=== PATIENT | female | born 1990 | race Caucasian/White ===

== ENCOUNTER → 2019-09-20 | Outpatient (REF) | payer OTHER | LOC: M LAB REF 16:47 | PROVIDERS: ATTEND Advanced Practice Midwife | DX: N39.0 Urinary tract infection, site not specified (principal); Z12.4 Encounter for screening for malignant neoplasm of cervix | CPT/HCPCS: 87088; 87186; 87624; G0123 ==

== ENCOUNTER 2020-06-27 08:59 | Emergency (ER) | payer BC, OTHER ==
[2020-06-27] MEDS ORDERED: ONDANSETRON 4MG/2ML VIAL ONE (09:38)
[2020-06-27] MEDS ORDERED: METOCLOPRAMIDE INJ 10MG/2ML VIAL (J2765 PER 1) ONE (12:14)
[2020-08-11 11:14] LABS: BASO # 0.1 10^3/uL (0.0-0.2); BASO % 0.7 % (0.0-1.0); EOS # 0.1 10^3/uL (0.0-0.5); EOS % 1.1 % (0.0-3.0); HEMATOCRIT 39.7 % (36.0-47.0); HEMOGLOBIN 13.5 g/dl (12.0-15.5); LYMPH # 1.7 10^3/uL (1.5-5.0); LYMPH % 21.3 % (24.0-44.0); MEAN CORPUSCULAR HEMOGLOBIN 29.6 pg (27.0-33.0); MEAN CORPUSCULAR VOLUME 87.1 fl (80.0-96.0); MONO # 0.3 10^3/uL (0.0-0.8); NEUTROPHILS # 5.9 10^3/uL (1.5-8.5); NEUTROPHILS % 72.7 % (36.0-66.0); PLATELET COUNT, AUTOMATED 176 10^3/uL (150-450); RED BLOOD COUNT 4.56 10^6/uL (4.00-5.40); WHITE BLOOD COUNT 8.2 10^3/uL (4.0-10.0)
== END 2020-06-27 14:14 | disposition home or self-care (01) ==
LOC: M ED 08:59
DX: O21.0 Mild hyperemesis gravidarum (principal); Z79.899 Other long term (current) drug therapy; Z3A.01 Less than 8 weeks gestation of pregnancy
CPT/HCPCS: 76801; 80048; 84702; 85025; 86850; 86900; 86901; 93976; 96374; 96375; 99284; J2405; J2765

== ENCOUNTER 2020-07-05 07:46 | Emergency (ER) | payer BC, OTHER ==
[~2020-07-05] VITALS: Ht 170.2 cm; Wt 60.1 kg
[2020-07-05] MEDS ORDERED: FOLI1TAB11 PO (07:52)
[2020-07-05] MEDS ORDERED: PREN200C PO (07:52)
[2020-07-05] MEDS ORDERED: METOCLOPRAMIDE INJ 10MG/2ML VIAL (J2765 PER 1) IV ONE (08:15)
[2020-07-05] MEDS ORDERED: NS 1,000 ML IV ONE (08:15)
[2020-07-05 08:36] LABS: BASO % 0.5 % (0.0-1.0); EOS # 0.1 10^3/uL (0.0-0.5); EOS % 1.1 % (0.0-3.0); HEMATOCRIT 36.8 % (36.0-47.0); HEMOGLOBIN 12.7 g/dl (12.0-15.5); LYMPH # 1.5 10^3/uL (1.5-5.0); LYMPH % 18.5 % (24.0-44.0); MEAN CORPUSCULAR HGB CONC 34.5 g/dl (32.0-36.5); MEAN CORPUSCULAR VOLUME 86.8 fl (80.0-96.0); MONO # 0.3 10^3/uL (0.0-0.8); MONO % 3.9 % (0.0-5.0); NEUTROPHILS % 75.6 % (36.0-66.0); PLATELET COUNT, AUTOMATED 166 10^3/uL (150-450); RED BLOOD COUNT 4.24 10^6/uL (4.00-5.40); WHITE BLOOD COUNT 7.9 10^3/uL (4.0-10.0)
[2020-07-05 09:08] LABS: ALBUMIN 4.1 GM/DL (3.2-5.2); BILIRUBIN,DIRECT 0.2 MG/DL (0.0-0.2); BILIRUBIN,TOTAL 0.6 MG/DL (0.2-1.0); TOTAL PROTEIN 6.9 GM/DL (6.4-8.2)
[2020-07-05 10:34] VITALS: BP 105/54
== END 2020-07-05 10:40 | disposition home or self-care (01) ==
LOC: M ED 07:46
DX: O21.9 Vomiting of pregnancy, unspecified (principal); Z87.59 Personal history of other complications of pregnancy, childbirth and the puerperium; Z79.899 Other long term (current) drug therapy
CPT/HCPCS: 36415; 80047; 80076; 83690; 84702; 85025; 96361; 96374; 99284; J2765

== ENCOUNTER → 2020-08-01 | Outpatient (CLI) | payer BC, OTHER ==
[~2020-08-01] MED LIST: FOLI1TAB11 PO; PREN200C PO
[2020-08-01 12:40] LABS: BASO % 0.6 % (0.0-1.0); EOS # 0.2 10^3/uL (0.0-0.5); EOS % 3.1 % (0.0-3.0); HEMOGLOBIN 11.8 g/dl (12.0-15.5); LYMPH # 1.6 10^3/uL (1.5-5.0); LYMPH % 22.6 % (24.0-44.0); MEAN CORPUSCULAR HEMOGLOBIN 29.9 pg (27.0-33.0); MEAN CORPUSCULAR HGB CONC 33.7 g/dl (32.0-36.5); MEAN CORPUSCULAR VOLUME 88.8 fl (80.0-96.0); MONO # 0.3 10^3/uL (0.0-0.8); MONO % 4.6 % (0.0-5.0); NEUTROPHILS # 4.8 10^3/uL (1.5-8.5); NEUTROPHILS % 68.7 % (36.0-66.0); PLATELET COUNT, AUTOMATED 169 10^3/uL (150-450); RED BLOOD COUNT 3.94 10^6/uL (4.00-5.40)
[2020-08-01 14:27] LABS: FREE T4 0.95 NG/DL (0.76-1.46); HEPATITIS C VIRUS ABY INDEX 0.1 INDEX (<0.8); HIV 1&2 SCREEN CENTAUR NEGATIVE (NEGATIVE)
[2020-08-06 13:13] LABS: CHLAMYDIA DNA AMPLIFICATION NEGATIVE (NEGATIVE); GC DNA AMPLIFICATION NEGATIVE (NEGATIVE)
== END ==
LOC: M PLALAB 08:44
PROVIDERS: ATTEND Advanced Practice Midwife
DX: Z34.81 Encounter for supervision of other normal pregnancy, first trimester (principal); Z3A.00 Weeks of gestation of pregnancy not specified

== ENCOUNTER → 2020-09-25 | Outpatient (CLI) | payer BC ==
--- NOTE | 2020-09-26 05:13 | REP ---
INDICATION: ANATOMY COMPARISON: 06/14/2020 TECHNIQUE: Transabdominal obstetrical ultrasound with color Doppler evaluation. FINDINGS: Examination demonstrates a single live intrauterine in breech presentation. motion is identified by technologist. Placenta is noted posterior and grade 0 without evidence for placenta previa or abruption. Amniotic fluid volume is normal. Cervix measures 3.2 cm in length and appears closed.. Gestational age by LMP 19 weeks 5 days with BRISA 02/14/2021. Gestational age by current measurements 19 weeks 5 days with BRISA 02/14/2021. FHR equals 143 beats per minute. BPD: 4.6 cm 19 weeks 6 days HC: 17.0 cm 19 weeks 4 days AC: 14.3 cm 19 weeks 5 days FL: 3.1 cm 19 weeks 5 days HL: 3.0 cm 19 weeks 5 days HC/AC: 1.19 Estimated weight 305 grams (43rdpercentile). Anatomical assessment demonstrates normal structures including cranium, choroid plexus, cavum, cerebellum/posterior fossa, facial features, lungs, diaphragm, stomach, cord insertion/three-vessel cord, kidneys/bladder, spine, and extremities. IMPRESSION: Single live intrauterine in breech presentation demonstrating appropriate interval growth. Limited evaluation of the heart/ventricular outflow tracts noted. Remainder of the anatomical assessment is complete and normal. <Electronically signed by Rajesh Coy > 09/26/20 [id number]
== END ==
LOC: M WHC 12:39
PROVIDERS: ATTEND Advanced Practice Midwife
DX: O32.1XX0 Maternal care for breech presentation, not applicable or unspecified (principal); Z3A.19 19 weeks gestation of pregnancy

== ENCOUNTER → 2020-10-31 | Outpatient (CLI) | payer BC ==
--- NOTE | 2020-10-31 12:32 | REP ---
INDICATION: F/U ANATOMY. COMPARISON: September 25, 2020.. TECHNIQUE: Transabdominal sonography is carried out. FINDINGS: Scanning through the gravid uterus demonstrates a viable single intrauterine gestation in breech lie. motion is observed and heart rate is recorded at 142 beats per minute. A posterior placenta is seen, grade 0, without evidence of placenta previa. Amniotic fluid is subjectively normal. Closed cervical length is measured at 3.5 cm transabdominally. No extrauterine abnormality is observed. Amniotic fluid is subjectively normal. Four-chamber heart and left ventricular outflow tract views were obtained today and are unremarkable. In conjunction with the prior study, anatomic survey is felt to be complete.. Biometry chart: BPD 6.2 cm, 25 weeks 2 days Head circumference 23.0 cm, 25 weeks 0 days Abdominal circumference 20.4 cm, 25 weeks 0 days Femur length 4.5 cm, 24 weeks 6 days Humeral length 4.1 cm, 24 weeks 6 days HC AC ratio normal 1.13 Cephalic index normal 0.76 Estimated weight 754 g, 1 lb 10 oz, 46 percentile for 24 weeks 6 days IMPRESSION: Viable single intrauterine gestation at 25 weeks 0 days by today's composite sonographic criteria. BRISA by today's sonography February 13, 2021. No complication identified. Expected gestational age estimate based on prior sonography is 24 weeks 6 days. BRISA by prior sonography February 14, 2021. <Electronically signed by Sonido Vences > 10/31/20 [id number]
== END ==
LOC: M WHC 09:24
PROVIDERS: ATTEND Obstetrics & Gynecology
DX: Z34.82 Encounter for supervision of other normal pregnancy, second trimester (principal)

== ENCOUNTER → 2020-11-03 | Outpatient (REF) | payer BC ==
[2020-11-03 15:07] LABS: HEMATOCRIT 30.8 % (36.0-47.0); HEMOGLOBIN 10.1 g/dl (12.0-15.5); MEAN CORPUSCULAR HEMOGLOBIN 30.4 pg (27.0-33.0); MEAN CORPUSCULAR HGB CONC 32.8 g/dl (32.0-36.5); MEAN CORPUSCULAR VOLUME 92.8 fl (80.0-96.0); PLATELET COUNT, AUTOMATED 151 10^3/uL (150-450); RED BLOOD COUNT 3.32 10^6/uL (4.00-5.40); WHITE BLOOD COUNT 9.7 10^3/uL (4.0-10.0)
== END ==
LOC: M PLALAB 13:08
PROVIDERS: ATTEND Obstetrics & Gynecology
DX: Z36.89 Encounter for other specified antenatal screening (principal); Z3A.00 Weeks of gestation of pregnancy not specified

== ENCOUNTER → 2021-01-13 | Outpatient (REF) | payer OTHER | LOC: M PLALAB 22:37 | PROVIDERS: ATTEND Obstetrics & Gynecology | DX: Z3A.35 35 weeks gestation of pregnancy (principal) ==

== ENCOUNTER → 2021-01-15 | Outpatient (REF) | payer OTHER | LOC: M SFHCWAGY 12:58 | PROVIDERS: ATTEND Obstetrics & Gynecology | DX: Z3A.35 35 weeks gestation of pregnancy (principal) ==

== ENCOUNTER → 2021-02-14 | Outpatient (CLI) | payer OTHER | LOC: M LABSMTC 08:24 | PROVIDERS: ATTEND Specialist | DX: Z20.822 Contact with and (suspected) exposure to COVID-19 (principal) ==

== ENCOUNTER → 2021-02-17 | Outpatient (CLI) | payer BC ==
--- NOTE | 2021-02-17 13:58 | REP ---
INDICATION: UTERINE SIZE DATE DISCREPANCY,GROWTH. COMPARISON: 10/31/2020. TECHNIQUE: Multiple sonographic images of the gravid uterus. FINDINGS: There is a single intrauterine gestation in a cephalic presentation. The placenta is posterior. There is no placenta previa. Cervix measures 3.4 cm. heart rate is 140 beats per minute. Amniotic fluid index is 24.4. Normal is 7.1-20.6. Subjectively there is polyhydramnios. The composite ultrasound gestational age by today's measurements is 40 weeks 4 days with an BRISA of 02/13/2021. Gestational age by the 1st ultrasound is 40 weeks 3 days with an BRISA of 02/14/2021. Gestational age by LMP is 40 weeks 3 days with an BRISA of 02/14/2021. weight is 4264 g that corresponds to 9 lb 6 oz. IMPRESSION: Polyhydramnios. Gestational age 40 weeks 4 days. <Electronically signed by Chirag Barraza > 02/17/21 [id number]
== END ==
LOC: M WHC 11:33
PROVIDERS: ATTEND Advanced Practice Midwife
DX: O26.843 Uterine size-date discrepancy, third trimester (principal); O40.3XX0 Polyhydramnios, third trimester, not applicable or unspecified; Z3A.40 40 weeks gestation of pregnancy

== ENCOUNTER 2021-02-19 14:38 | Inpatient (IN) | payer BC, OTHER ==
[2021-02-19] VITALS (8 sets, daily range): BP systolic 111–139; BP diastolic 71–81
[~2021-02-19] VITALS: Ht 170.2 cm; Wt 96.8 kg
[2021-02-19] MEDS ORDERED: LACTATED RINGER'S 1000 ML IV STA (15:47)
[2021-02-19] MEDS ORDERED: OXYTOCIN INJ 10 UNITS/ML VIAL (J2590) IV PRN (15:50)
[2021-02-19] MEDS ORDERED: METHYLERGONOVINE MALEATE 0.2 MG/ML VIAL (J2210) IM PRN (15:50)
[2021-02-19] MEDS ORDERED: CARBOPROST TROMETHAMINE 250 MCG/ML AMP IM PRN (15:50)
[2021-02-19] MEDS ORDERED: LIDOCAINE 1% MDV 20ML VIAL INFIL PRN (15:50)
[2021-02-19] MEDS ORDERED: TRANEXAMIC ACID INJection 1,000 MG in NS 100 ML IV PRN (15:50)
[2021-02-19] MEDS ORDERED: OXYTOCIN INJ 10 UNITS/ML VIAL (J2590) IM PRN (15:50)
[2021-02-19] MEDS ORDERED: OXYTOCIN DRIP 30 UNITS in IV 1 EA IV PRN ×6 (15:50)
[2021-02-19] MEDS ORDERED: LR 1,000 ML IV SCH (15:50)
[2021-02-19 16:17] LABS: HEMATOCRIT 32.3 % (36.0-47.0); HEMOGLOBIN 10.6 g/dl (12.0-15.5); MEAN CORPUSCULAR HEMOGLOBIN 28.6 pg (27.0-33.0); MEAN CORPUSCULAR HGB CONC 32.8 g/dl (32.0-36.5); MEAN CORPUSCULAR VOLUME 87.1 fl (80.0-96.0); PLATELET COUNT, AUTOMATED 135 10^3/uL (150-450); RED BLOOD COUNT 3.71 10^6/uL (4.00-5.40); WHITE BLOOD COUNT 11.4 10^3/uL (4.0-10.0)
--- NOTE | 2021-02-19 16:34 | HPEPDOC ---
Obstetrical History & Physical General Date of Admission Feb 19, 2021 at 14:38 History of Present Illness 30-year-old at 40+5 weeks gestation. Presents for an induction of labor. Indication for induction: polyhydramnios, suspected macrosomia She denies vaginal bleeding, loss of fluid or painful, frequent uterine contractions. She reports regular movement. She denies headache, visual changes, right upper quadrant pain, shortness of breath or chest pain. 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: No STI or dysplasia OB: G1, 2018 uncomplicated, 9lbs 3oz Sochx: No tobacco, alcohol or drug use FamHx: uterine cancer, colon cancer, HTN labs: Blood type O+ , antibody screen negative, HepBsAg neg, HIV neg, rubella immune, Hep C antibody negative, RPR nonreactive, CT/GC neg, urine culture negative, 1 hour glucose challenge test 84, GBS negative Past Medical History Allergies Coded Allergies: spinach (Verified Allergy, Intermediate, tongue swelling; itching, 02/19/21) Medications Scheduled Docosahexanoic Acid ( Dha) 200 Mg Capsule, 1 CAP PO DAILY Folic Acid (Folic Acid) 1 Mg Tablet, 1 TAB PO DAILY Physical Examination Physical Examination GENERAL: Alert and oriented times three. ABDOMEN: Gravid and non-tender to touch. FETUS: Is vertex (VTX) by sterile vaginal examination (SVE), fetus is vertex (VTX) by Dario. HEART RATE: Regular rate and rhythm. LUNGS: Clear to auscultation (CTA). EXTREMITIES: No edema. No clonus. SVE: 2cm/50%/-3 EFM: Category I Perla: irregular contractions. Laboratory Data 24H LABS Laboratory Tests 2 02/19/21 14:58: Serology Scanned Report Hepatitis B Testing Assessment/Plan Assessment 30yo at 40+5 weeks. Polyhydramnios. Suspected macrosomia/LGA. Favorable cervix for IOL. Reassuring maternal and status. Plan Admit and orient. 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 Labs and intravenous (IV) per unit protocol. Counseled on cervical ripening with misoprostol and Pitocin and induction of labor (IOL). Mode of delivery plan: ; reviewed ACOG guidelines regarding macrosomia. Patient expressed desire for . No contraindications to this plan. No history of dystocia / or maternal injury with previous . Proven pelvis to 9 lbs 3oz. Recent US EFW essentially equivalent. Pt verbalized understanding and agreement with all of the above. MARIELA MAIN DO Feb 19, 2021 16:34
[2021-02-19] MEDS ORDERED: miSOPROStol 50MCG 1/2 TABLET SL SCH (16:50)
--- NOTE | 2021-02-19 23:36 | IPNPDOC ---
Obstetrical Progress Note Date of Service Feb 19, 2021 Subjective Patient feeling contractions frequently and painfully. No LOF/VB. +FM. Objective Vital Signs Date Time Temp Pulse Resp B/P (MAP) Pulse Ox O2 Delivery O2 Flow Rate FiO2 02/19/21 22:15 95 16 127/78 (94) 02/19/21 19:41 97.5 Room Air Assessment Heart Rate Tracing: Category I Tocometer Contractions: Yes Frequency: every 2-5 min. Sterile Vaginal Examination Dilation: 6 cm Effacement (%): 70% Station: -1 Cervical Consistency: Soft Cervical Position: Anterior Postion/Presentation: Cephalic presentation Assessment and Plan Status: Reassuring Anticipate: Vaginal Delivery Additional Comments Active labor. Reassuring maternal and status. MARIELA MAIN DO Feb 19, 2021 23:36
[2021-02-20] VITALS (14 sets, daily range): BP systolic 104–159; BP diastolic 57–96
[2021-02-20] MEDS ORDERED: OXYTOCIN 30 UNITS IN 0.9% NaCl 500ML IV BAG (J2590) As Ordered ONE (00:51)
[2021-02-20] MEDS ORDERED: OXYTOCIN DRIP 30 UNITS in IV 1 EA IV SCH (03:35)
[2021-02-20] MEDS ORDERED: DIBUCAINE 1% OINTMENT 30GM TOP PRN (03:35)
[2021-02-20] MEDS ORDERED: IBUPROFEN 600MG TAB PO PRN (03:35)
[2021-02-20] MEDS ORDERED: ACETAMINOPHEN TAB 650MG DOSE (2X325MG) PO PRN (03:35)
[2021-02-20] MEDS ORDERED: MEASLES,MUMPS,RUBELLA VACCINE INJ (MMR-II) (90707) SC SCH (03:35)
[2021-02-20] MEDS ORDERED: DOCUSATE SODIUM 100MG CAPSULE PO PRN (03:35)
[2021-02-20] MEDS ORDERED: IBUPROFEN 800 MG TAB PO PRN (03:35)
[2021-02-20] MEDS ORDERED: ACETAMINOPHEN 500 MG TAB PO PRN (03:35)
[2021-02-20] MEDS ORDERED: RHOGAM 300 MCG (1500 IU) INJ (J2790) IM SCH (03:35)
[2021-02-20] MEDS ORDERED: ONDANSETRON 4MG/2ML VIAL IV PRN (03:35)
[2021-02-20] MEDS: LR 1,000 ML IV SCH ×3 (03:35→19:13)
--- NOTE | 2021-02-20 03:45 | DNPDOC ---
[facility] Delivery Note Delivery Note DATE OF DELIVERY: 02/20/21 TIME OF DELIVERY: 0307 Spontaneous vaginal delivery. WILDLIFE BIOSTATION RESEARCH ECOLOGIST: Dr. Alex Chopra DO FACOG ANESTHESIA: Local, 1% lidocaine (for laceration repair) LACERATION: 2nd degree ESTIMATED BLOOD LOSS: 200 mL. FINDINGS: See [employer], Score 8 and 9. DELIVERY SUMMARY: The active phase and second stage of labor progressed in normal fashion.. She received Pitocin augmentation throughout her labor course. The head delivered in the RACIEL position, and restituted LOT. No nuchal cord was noted. The anterior shoulder delivered with gentle downward guidance and the remainder of the body delivered with ease. The baby was placed on the patient's chest. Delayed cord clamping occurred for approximately 1 minute. The cord was then doubly clamped and cut. IV Pitocin was bolused to actively manage the third stage of labor. The placenta delivered intact without any difficulty within 10 minutes of delivery. The uterine fundus was noted to be firm and 2 cm below the umbilicus. The cervix, vagina, vulva and perineum were inspected. A second-degree laceration was noted and immediately repaired with 3-0 Vicryl in typical fashion, under local anesthesia. Excellent hemostasis was noted. Sponge, needle and instrument counts were correct per protocol. DO MARTIN Chin JONATHAN R. DO Feb 20, 2021 03:45
[2021-02-20] MEDS: PRENATAL VITAMINS CHEWABLE TABLET PO SCH (08:13)
[2021-02-21 06:00] VITALS: BP 123/56
[2021-02-21] MEDS: PRENATAL VITAMINS CHEWABLE TABLET PO SCH (11:37)
[2021-02-21 17:55] VITALS: BP 121/57
[2021-02-22 06:00] VITALS: BP 121/60
[2021-02-22] MEDS: PRENATAL VITAMINS CHEWABLE TABLET PO SCH (08:16)
== END 2021-02-22 13:16 | disposition home or self-care (01) | DRG 560 ==
LOC: M LDI 14:38 → M OBS 02-20 05:17
PROVIDERS: ADMIT Obstetrics & Gynecology; ATTEND Obstetrics & Gynecology
PROC: 10E0XZZ Delivery of Products of Conception, External Approach (ICD-10-PCS; principal; 2021-02-19)
PROC: 0KQM0ZZ Repair Perineum Muscle, Open Approach (ICD-10-PCS; 2021-02-19)
PROC: 3E0DXGC Introduction of Other Therapeutic Substance into Mouth and Pharynx, External Approach (ICD-10-PCS; 2021-02-19)
PROC: 3E033VJ Introduction of Other Hormone into Peripheral Vein, Percutaneous Approach (ICD-10-PCS; 2021-02-19)
DX: O40.3XX0 Polyhydramnios, third trimester, not applicable or unspecified (principal); O48.0 Post-term pregnancy; Z37.0 Single live birth; Z3A.40 40 weeks gestation of pregnancy; O70.1 Second degree perineal laceration during delivery

== ENCOUNTER → 2021-02-25 | Outpatient (REF) | payer OTHER | LOC: M SFHCWAGY 09:58 | PROVIDERS: ATTEND Advanced Practice Midwife | DX: R30.0 Dysuria (principal) ==

== ENCOUNTER → 2021-06-25 | Outpatient (CLI) | payer BC, OTHER ==
--- NOTE | 2021-06-25 14:24 | REP ---
INDICATION: OTHER SPECIFIED DISEASES OF ESOPHAGUS. COMPARISON: None TECHNIQUE: Upright PA and lateral chest. FINDINGS: The lung miles are clear. Cardiac size is normal. The john paul, mediastinum and skeletal structures are unremarkable. IMPRESSION: Essentially negative PA and lateral chest <Electronically signed by Chirag Barraza > 06/25/21 [id number]
== END ==
LOC: M PLAIMG 13:59
PROVIDERS: ATTEND Physician Assistant
DX: K22.8 Other specified diseases of esophagus (principal); R05 Cough; Z78.9 Other specified health status

== ENCOUNTER → 2021-06-25 | Outpatient (REF) | payer BC, OTHER | LOC: M SFHCPLAZ 13:32 | PROVIDERS: ATTEND Physician Assistant | DX: K22.8 Other specified diseases of esophagus (principal); R05 Cough; Z78.9 Other specified health status ==